=== PATIENT | male | born 1985 ===

== ENCOUNTER 2018-09-27 20:32 | Emergency (ER) | payer MEDICAID ==
[~2018-09-27] VITALS: Ht 185.4 cm; Wt 98.0 kg
[2018-09-27 22:28] LABS: BASOPHILS % 1.6 % (0.0-2.0); CHLORIDE 110 mEq/L (98-107); EOSINOPHILS % 7.9 % (0.0-5.0); HEMATOCRIT. 40.5 % (42.0-52.0); LYMPHOCYTES % 29.1 % (20.0-50.0); MEAN CORPUSCULAR HEMOGLOBIN 28.7 pg (28.0-32.0); MEAN CORPUSCULAR VOLUME 89.2 fL (80.0-94.0); MONOCYTES % 10.5 % (2.0-8.0); NEUTROPHILS % 50.9 % (40.0-76.0); PLATELET 239 x1000/uL (130-400); RED BLOOD CELL COUNT 4.54 mill/uL (4.7-6.1); RED CELL DISTRIBUTION WIDTH 13.7 % (11.6-14.6)
[2018-09-27 22:29] LABS: INR 2.7
[2018-09-27 23:22] VITALS: BP 125/73
== END 2018-09-27 23:23 | disposition home or self-care (01) ==
LOC: ER 20:32
DX: I83.892 Varicose veins of left lower extremity with other complications (principal); Z98.890 Other specified postprocedural states
CPT/HCPCS: 12001; 36415; 86850; 86900; 99283